=== PATIENT | female | born 1965 | race Caucasian/White ===

== ENCOUNTER 2018-05-21 15:54 | Emergency (ER) | payer BC ==
[2018-05-21] MEDS ORDERED: LORazepam 1 MG Tab PO ONE (16:27)
--- NOTE | 2018-05-21 16:30 | EDM.PDOC ---
ED HPI GENERAL MEDICAL PROBLEM - General Chief Complaint: Cardiovascular Problem Stated Complaint: HIGH BLOOD PRESSURE Time Seen by Provider: 05/21/18 16:28 Source of Information: Reports: Patient History Limitations: Reports: No Limitations - History of Present Illness INITIAL COMMENTS - FREE TEXT/NARRATIVE: HISTORY AND PHYSICAL: []52-year-old female presenting with elevated blood pressure History of Present Illness: []Patient saw Patria Aguilar NP and was told to take extra pressure medication Review of Systems: As per history of present illness and below otherwise all systems reviewed and negative. Past medical history: As per history of present illness and as reviewed below otherwise noncontributory. Surgical history: As per history of present illness and as reviewed below otherwise noncontributory. Social history: No reported history of drug or alcohol abuse. Family history: As per history of present illness and as reviewed below otherwise noncontributory. Physical exam: HEENT: Atraumatic, normocehpalic, pupils reactive, negative for conjunctival pallor or scleral icterus, mucous membranes moist, throat clear, neck supple, nontender, trachea midline. Lungs: Clear to auscultation, breath sounds equal bilaterally, chest non tender. Heart: S1S2, regular, negative for clicks, rubs, or JVD. Abdomen: Soft, nondistended, nontender. Negative for masses or hepatossplenmegaly. Negative for costovertebral tenderness. Pelvis: Stable nontender. Genitourinary: Deferred. Rectal: Deferred Extremities: Atraumatic, negative for cords or calf pain. Neurovascular unremarkable. Neuro: Awake, alert, oriented. Cranial nerves II through XII unremarkable. Cerebellum unremarkable. Motor and sensory unremarkable throughout. Exam nonfocal. Diagnostics: [] Therapeutics: []ativan Impression: []anxiety hypertension Plan: []Discharge home follow up with your PCP Definitive disposition and diagnosis as appropriate pending reevaluation and review of above. 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 ED EXAM, GENERAL - Physical Exam Exam: See Below (see dictation) Course - Vital Signs Last Recorded V/S: Last Vital Signs Temp 36.4 C 05/21/18 16:20 Pulse 80 05/21/18 16:20 Resp 18 05/21/18 16:20 BP 187/110 H 05/21/18 16:20 Pulse Ox 95 05/21/18 16:20 - Orders/Labs/Meds Meds: Medications Discontinued Medications Generic Name Dose Route Start Last Admin Trade Name Alejandro PRN Reason Stop Dose Admin Lorazepam 1 mg 05/21/18 16:27 05/21/18 16:38 Ativan PO 05/21/18 16:28 1 mg ONETIME ONE Administration Departure - Departure Time of Disposition: 17:10 Disposition: Home, Self-Care 01 Condition: Good Clinical Impression: Anxiety Hypertensive heart disease Qualifiers: Heart failure presence: without heart failure Qualified Code(s): I11.9 - Hypertensive heart disease without heart failure Instructions: Living With Anxiety, Hypertension Referrals: PCP,Unknown [Primary Care Provider] - Forms: ED Department Discharge Additional Instructions: The following information is given to patients seen in the emergency department who are being discharged to home. This information is to outline your options for follow-up care. We provide all patients seen in our emergency department with a follow-up referral. The need for follow-up, as well as the timing and circumstances, are variable depending upon the specifics of your emergency department visit. If you don't have a primary care physician on staff, we will provide you with a referral. We always advise you to contact your personal physician following an emergency department visit to inform them of the circumstance of the visit and for follow-up with them and/or the need for any referrals to a consulting specialist. The emergency department will also refer you to a specialist when appropriate. This referral assures that you have the opportunity for followup care with a specialist. All of these measure are taken in an effort to provide you with optimal care, which includes your followup. Under all circumstances we always encourage you to contact your private physician who remains a resource for coordinating your care. When calling for followup care, please make the office aware that this follow-up is from your recent emergency room visit. If for any reason you are refused follow-up, please contact the [facility] emergency department at and asked to speak to the emergency department charge nurse. Your treated for anxiety and hypertension while in the emergency department Follow-up with your primary care provider Patria Aguilar NP
[2018-05-21 17:12] VITALS: BP 138/94
== END 2018-05-21 17:23 | disposition home or self-care (01) ==
LOC: MW.ED 15:54
DX: I11.9 Hypertensive heart disease without heart failure (principal); F41.9 Anxiety disorder, unspecified; J45.909 Unspecified asthma, uncomplicated; Z79.899 Other long term (current) drug therapy
CPT/HCPCS: 99283; A9270

== ENCOUNTER 2021-09-02 12:06 | Emergency (ER) | payer BC ==
--- NOTE | 2021-09-02 14:28 | EDM.PDOC ---
ED HPI GENERAL MEDICAL PROBLEM - General Chief Complaint: Respiratory Problem Stated Complaint: COUGHING, CHEST CONGESTION Time Seen by Provider: 09/02/21 14:21 Source of Information: Reports: Patient History Limitations: Reports: No Limitations - History of Present Illness INITIAL COMMENTS - FREE TEXT/NARRATIVE: 55-year-old female past medical history asthma, TMJ presents for 2 weeks of cough, congestion, wheezing. Patient notes that her son recently got over pneumonia and was treated with azithromycin. She notes that the symptoms are worse at night. She denies any fevers or loss of taste and smell. 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 ED EXAM, GENERAL - Physical Exam Exam: See Below Exam Limited By: No Limitations General Appearance: Alert, WD/WN, No Apparent Distress Ears: Hearing Grossly Normal Throat/Mouth: Normal Voice, No Airway Compromise Head: Atraumatic, Normocephalic Neck: Normal Inspection Respiratory/Chest: No Respiratory Distress, No Accessory Muscle Use, Wheezing Cardiovascular: Normal Peripheral Pulses, Regular Rate, Rhythm Back Exam: Normal Inspection Extremities: Normal Inspection Neurological: Alert, Normal Cognition, Normal Gait Psychiatric: Normal Affect, Normal Mood Skin Exam: Warm, Dry, Intact, Normal Color Course - Vital Signs Last Recorded V/S: Last Vital Signs Temp 97.6 F 09/02/21 12:43 Pulse 96 09/02/21 12:43 Resp 16 09/02/21 12:43 BP 186/101 H 09/02/21 12:43 Pulse Ox 99 09/02/21 12:43 - Orders/Labs/Meds Orders: Active Orders 24 hr Category Date Time Status RT Aerosol Therapy [RC] ASDIRECTED Care 09/02/21 14:33 Active Chest 1V Frontal [CR] Stat Exams 09/02/21 14:26 Taken Meds: Medications Discontinued Medications Generic Name Dose Route Start Last Admin Trade Name Frealdo PRN Reason Stop Dose Admin Albuterol/Ipratropium 3 ml 09/02/21 14:33 09/02/21 15:00 Albuterol/Ipratropium 3.0-0.5 Mg/3 Ml Neb Soln NEB 09/02/21 14:34 3 ml ONETIME ONE Administration - Re-Assessments/Exams Free Text/Narrative Re-Assessment/Exam: 09/02/21 14:34 I did recommend that patient get a COVID-19 test. She states that she is willing to try but she is very anxious about having things put up her nose. She is willing to get a chest x-ray. We will also give a DuoNeb treatment considering patient has mild expiratory wheezing. 09/02/21 15:52 CXR unremarkable; will d/c with a zpack and prednisone Departure - Departure Time of Disposition: 15:52 Disposition: Home, Self-Care 01 Condition: Good Clinical Impression: Asthma attack Qualifiers: Asthma severity: mild Asthma persistence: unspecified Qualified Code(s): J45.901 - Unspecified asthma with (acute) exacerbation - Discharge Information Instructions: Asthma Attack Referrals: PCP,None [Primary Care Provider] - Forms: ED Department Discharge Additional Instructions: The following information is given to patients seen in the emergency department who are being discharged to home. This information is to outline your options for follow-up care. We provide all patients seen in our emergency department with a follow-up referral. The need for follow-up, as well as the timing and circumstances, are variable depending upon the specifics of your emergency department visit. If you don't have a primary care physician on staff, we will provide you with a referral. We always advise you to contact your personal physician following an emergency department visit to inform them of the circumstance of the visit and for follow-up with them and/or the need for any referrals to a consulting specialist. The emergency department will also refer you to a specialist when appropriate. This referral assures that you have the opportunity for follow-up care with a specialist. All of these measure are taken in an effort to provide you with optimal care, which includes your follow-up. Under all circumstances we always encourage you to contact your private physician who remains a resource for coordinating your care. When calling for follow-up care, please make the office aware that this follow-up is from your recent emergency room visit. If for any reason you are refused follow-up, please contact the [facility] Emergency Department at and asked to speak to the emergency department charge nurse. Please follow up with your primary care physician. If you do not have a primary care physician, see below: [facility] [address] [place] [id number] My [facility] [address] [place] [id number] [facility] [address] [place] [id number] Sepsis Event Note (ED) - Evaluation Sepsis Screening Result: No Definite Risk - Focused Exam Vital Signs: Vital Signs Temp Pulse Resp BP Pulse Ox 09/02/21 12:43 97.6 F 96 16 186/101 H 99 - My Orders Last 24 Hours: My Active Orders 09/02/21 14:26 Chest 1V Frontal [CR] Stat 09/02/21 14:33 RT Aerosol Therapy [RC] ASDIRECTED - Assessment/Plan Last 24 Hours: My Active Orders 09/02/21 14:26 Chest 1V Frontal [CR] Stat 09/02/21 14:33 RT Aerosol Therapy [RC] ASDIRECTED
[2021-09-02] MEDS ORDERED: Albuterol/Ipratropium 3.0-0.5 MG/3 ML Neb Soln NEB ONE (14:33)
[2021-09-02 15:59] VITALS: BP 170/110; PULSE 103
--- NOTE | 2021-09-02 16:14 | CR ---
INDICATION: Coughing and shortness of breath. TECHNIQUE: Portable AP chest. COMPARISON: 12/26/2016. FINDINGS: Lungs are clear. Normal heart size and pulmonary vascularity. No pleural effusion. No pneumothorax. IMPRESSION: Normal chest. Dictated by Rhys Mora MD @ 09/02/2021 4:12:49 PM (Electronically Signed)
== END 2021-09-02 15:59 | disposition home or self-care (01) ==
LOC: MW.ED 12:06
DX: J45.20 Mild intermittent asthma, uncomplicated (principal); I10 Essential (primary) hypertension; Z79.899 Other long term (current) drug therapy
CPT/HCPCS: 71045; 71045-26; 94640; 99285-25; J7620-GY

== ENCOUNTER 2021-11-21 12:06 | Emergency (ER) | payer BC ==
--- NOTE | 2021-11-21 12:10 | EDM.PDOC ---
ED HPI GENERAL MEDICAL PROBLEM - General Stated Complaint: SHORTNESS OF BREATH Time Seen by Provider: 11/21/21 12:07 Source of Information: Reports: Patient History Limitations: Reports: No Limitations - History of Present Illness INITIAL COMMENTS - FREE TEXT/NARRATIVE: 56-year-old female past medical history hypertension, anxiety, asthma presents for concerns of hypoxia. Patient was dx with COVID 3-4 weeks ago. She notes that she has been checking her oxygenation very frequently and her machine briefly had a reading of 87%. She did not and does not feel short of breath. The pulse oximeter does not have a waveform function. She denies fevers, chills, cough. - Related Data Allergies Allergy/AdvReac Type Severity Reaction Status Date / Time No Known Allergies Allergy Verified 11/21/21 12:25 Home Meds: Home Meds Albuterol Sulfate [Albuterol Sulfate HFA] 1 puff INH ASDIRECTED PRN 09/21/21 [History] Losartan [Cozaar] 50 mg PO BID 09/21/21 [History] Past Medical History HEENT History: Reports: Other (See Below) Other HEENT History: wears glasses, has lower permanent dental bridge, has problems with TMJ, plans to have Palatal expansion in 2 weeks Cardiovascular History: Reports: Hypertension Respiratory History: Reports: Asthma Other Respiratory History: rarely uses inhaler Gastrointestinal History: Reports: GERD Other Gastrointestinal History: does not take any medication for GERD Genitourinary History: Reports: None 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: Musculoskeletal History: Reports: Neck Pain, Chronic Other Musculoskeletal History: feels neck pain is due to TMJ Neurological History: Reports: Vertigo Psychiatric History: Reports: Anxiety, PTSD Other Psychiatric History: her son had a skull fx and brain bleed at - is now autistic Endocrine/Metabolic History: Reports: None Hematologic History: Reports: None Immunologic History: Reports: None Oncologic (Cancer) History: Reports: None Dermatologic History: Reports: None - Past Surgical History Head Surgeries/Procedures: Reports: None HEENT Surgical History: Reports: Naso-Sinus Surgery, Oral Surgery Other HEENT Surgeries/Procedures: jaw surgery- has a screw in jaw, repair of fx nose Cardiovascular Surgical History: Reports: None Respiratory Surgical History: Reports: None GI Surgical History: Reports: Cholecystectomy Female Surgical History: Reports: Section Endocrine Surgical History: Reports: None Neurological Surgical History: Reports: None Musculoskeletal Surgical History: Reports: None Oncologic Surgical History: Reports: None Social & Family History - Family History Family Medical History: No Pertinent Family History Cardiac: Reports: None - Caffeine Use Caffeine Use: Reports: Coffee ED ROS GENERAL - Review of Systems Review Of Systems: Comprehensive ROS is negative, except as noted in HPI. ED EXAM, GENERAL - Physical Exam Exam: See Below Exam Limited By: No Limitations General Appearance: Alert, WD/WN, No Apparent Distress Ears: Hearing Grossly Normal Throat/Mouth: Normal Voice, No Airway Compromise Head: Atraumatic, Normocephalic Respiratory/Chest: No Respiratory Distress, Lungs Clear, Normal Breath Sounds, N o Accessory Muscle Use Cardiovascular: Normal Peripheral Pulses, Regular Rate, Rhythm Extremities: Normal Inspection Neurological: Alert Psychiatric: Normal Affect, Normal Mood Skin Exam: Warm, Dry, Intact, Normal Color Course - Vital Signs Last Recorded V/S: Last Vital Signs Temp 97.5 F 11/21/21 12:19 Pulse 100 11/21/21 12:19 Resp 16 11/21/21 12:19 BP 157/95 H 11/21/21 12:19 Pulse Ox 100 11/21/21 12:19 - Re-Assessments/Exams Free Text/Narrative Re-Assessment/Exam: 11/21/21 12:49 Patient was reassured. Offered CXR, but patient declines as she had one recently at PCP follow-up and does not have any symptoms today. She just wanted to make sure she was okay considering the abnormal pulse oximeter reading. Departure - Departure Time of Disposition: 12:45 Disposition: Home, Self-Care 01 Condition: Good Clinical Impression: Shortness of breath - Discharge Information Instructions: Shortness of Breath, Adult, [id number] Additional Instructions: The following information is given to patients seen in the emergency department who are being discharged to home. This information is to outline your options for follow-up care. We provide all patients seen in our emergency department with a follow-up referral. The need for follow-up, as well as the timing and circumstances, are variable depending upon the specifics of your emergency department visit. If you don't have a primary care physician on staff, we will provide you with a referral. We always advise you to contact your personal physician following an emergency department visit to inform them of the circumstance of the visit and for follow-up with them and/or the need for any referrals to a consulting specialist. The emergency department will also refer you to a specialist when appropriate. This referral assures that you have the opportunity for follow-up care with a specialist. All of these measure are taken in an effort to provide you with optimal care, which includes your follow-up. Under all circumstances we always encourage you to contact your private physician who remains a resource for coordinating your care. When calling for follow-up care, please make the office aware that this follow-up is from your recent emergency room visit. If for any reason you are refused follow-up, please contact the [facility] Emergency Department at and asked to speak to the emergency department charge nurse. Please follow up with your primary care physician. If you do not have a primary care physician, see below: [facility] [address] [place] [id number] [facility] [address] [place] [id number] [facility] [address] [place] [id number] Sepsis Event Note (ED) - Focused Exam Vital Signs: Vital Signs Temp Pulse Resp BP Pulse Ox 11/21/21 12:19 97.5 F 100 16 157/95 H 100
[2021-11-21 12:25] VITALS: PULSE 100
[2021-11-21 12:59] VITALS: BP 133/96
== END 2021-11-21 13:00 | disposition home or self-care (01) ==
LOC: MW.ED 12:06
DX: R06.02 Shortness of breath (principal); I10 Essential (primary) hypertension; Z79.899 Other long term (current) drug therapy; Z86.16 Personal history of COVID-19
CPT/HCPCS: 99283

== ENCOUNTER 2022-03-19 07:42 | Emergency (ER) | payer OTHER, BC ==
[2022-03-19] MEDS ORDERED: Acetaminophen/HYDROcodone 325-10 MG Tab PO ONE (08:02)
[2022-03-19] MEDS ORDERED: Ketorolac 30 MG/ML SDV IM ONE (08:02)
[2022-03-19 09:21] VITALS: BP 101/63; PULSE 81
== END 2022-03-19 09:21 | disposition home or self-care (01) ==
LOC: MW.ED 07:42
DX: M54.16 Radiculopathy, lumbar region (principal); Z79.899 Other long term (current) drug therapy
CPT/HCPCS: 72100; 73502; 96372; 99283; A9270; J1885

== ENCOUNTER 2022-12-16 08:22 | Emergency (ER) | payer OTHER, BC ==
[2022-12-16 08:30] VITALS: BP 186/111; PULSE 92
[2022-12-16] MEDS ORDERED: Ketorolac 30 MG/ML SDV IVPUSH ONE (08:31)
[2022-12-16] MEDS: Orphenadrine 60 MG/2 ML Inj IV STA ×2 (08:37→10:09)
== END 2022-12-16 10:13 | disposition home or self-care (01) ==
LOC: MW.ED 08:22
DX: S13.9XXA Sprain of joints and ligaments of unspecified parts of neck, initial encounter (principal); I10 Essential (primary) hypertension; M54.50 Low back pain, unspecified; J45.909 Unspecified asthma, uncomplicated; Z79.899 Other long term (current) drug therapy; V89.2XXA Person injured in unspecified motor-vehicle accident, traffic, initial encounter; Y92.410 Unspecified street and highway as the place of occurrence of the external cause
CPT/HCPCS: 72125; 96374; 99284; J1885; J2360